=== PATIENT | female | born 2000 | race African-American/Black ===

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

== ENCOUNTER 2021-02-14 16:26 | Emergency (ER) | payer BC, MEDICAID, SELFPAY ==
[2021-02-14 17:05] LABS: Bilirubin Negative (Negative); Blood, Urine Trace (Negative); Clarity Slightly Cloudy (Clear); Glucose, Urine (Dipstick) Negative (Negative); Ketone, Urine Negative (Negative); Leukocyte Negative (Negative); Nitrite Negative (Negative); Protein, Urine (Dipstick) Negative (Neg-Trace)
[2021-02-14 17:08] LABS: Specific Gravity, Urine 1.025 (1.005-1.030)
[2021-02-14 17:11] LABS: RBC/HPF 0-3 HPF (0-3)
[2021-02-14 17:12] LABS: Bacteria/HPF 2+ HPF (None Seen); Pregnancy Test - Urine (BHCG) Negative (Negative)
[2021-02-14 17:13] LABS: Pregu Control Background? CLEAR/WHITE (CLR/WHITE); Pregu Control Bar Appear? YES (CONTROL BAR); Specific Gravity 1.025 (1.002-1.036)
[2021-02-14 17:17] LABS: Hemoglobin 11.4 g/dL (12.0-16.0); Mean Corpuscular HGB CONC 31.4 g/dL (32.0-36.0); Mean Corpuscular Hemoglobin 25.2 pg (25.0-35.0); Mean Corpuscular Volume 80.1 fL (78.0-98.0); Mean Platelet Volume 6.2 fL (7.4-10.4); Platelet Count 466 thou/uL (130-400); Red Blood Cell (RBC) Count 4.52 mill/uL (4.00-5.20); White Blood Cell (WBC) Count 5.8 thou/uL (4.8-10.8)
[2021-02-14 17:21] LABS: ALT (SGPT) 15 U/L (8-55); AST (SGOT) 16 U/L (5-34); Albumin 3.7 g/dL (3.5-5.0); Alkaline Phosphatase 80 U/L (40-100); Anion Gap 10 mmol/L (10-20); BUN (Urea Nitrogen) 9 mg/dL (7.0-18.7); Bilirubin, Total 0.2 mg/dL (0.2-1.2); Calc. Creatinine Clearance 0 mL/min (70-130); Calcium 9.3 mg/dL (7.8-10.44); Carbon Dioxide 26 mmol/L (22-29); Chloride 106 mmol/L (98-107); Globulin 3.4 g/dL (2.4-3.5); Glucose 109 mg/dL (70-105); Lipase 32 U/L (8-78); Potassium 3.9 mmol/L (3.5-5.1); Protein, Total 7.1 g/dL (6.0-8.3); Sodium 138 mmol/L (136-145)
[2021-02-14 17:40] LABS: Band 1 % (5-11); Lymphocytes 48 % (28-48); MDiff Complete? YES; Neutrophil 49 % (31-61)
[2021-02-14 17:41] LABS: Anisocytosis SLIGHT = 6-15 cells (100X) (0-5/hpf); Monocytes 2 % (0-4)
[2021-02-14] MEDS ORDERED: Ondansetron ODT 4 MG TAB ONE (17:45)
[2021-02-14 17:46] LABS: Bilirubin Negative (Negative); Blood, Urine Negative (Negative); Clarity Clear (Clear); Glucose, Urine (Dipstick) Negative (Negative); Ketone, Urine Negative (Negative); Leukocyte Negative (Negative); Nitrite Negative (Negative); Protein, Urine (Dipstick) Negative (Neg-Trace); Specific Gravity, Urine 1.025 (1.005-1.030)
[2021-02-14] MEDS ORDERED: Mag-Al Plus 1200 MG/1200 MG/120 MG/30 ML UDCUP ONE (17:48)
== END 2021-02-14 18:00 | disposition home or self-care (01) ==
LOC: NAV ERS 16:26
DX: K29.70 Gastritis, unspecified, without bleeding (principal)
CPT/HCPCS: 36415; 80053; 81003; 81015; 81025; 83690; 85025; 87077; 87086; 87186; 99284; Q0162

== ENCOUNTER 2021-12-07 18:13 | Emergency (ER) | payer SELFPAY ==
[2021-12-07] MEDS ORDERED: predniSONE 20 MG TAB ONE (18:59)
== END 2021-12-07 19:08 | disposition home or self-care (01) ==
LOC: NAV ERS 18:13
DX: J20.8 Acute bronchitis due to other specified organisms (principal); J32.9 Chronic sinusitis, unspecified; B97.89 Other viral agents as the cause of diseases classified elsewhere; Z20.822 Contact with and (suspected) exposure to COVID-19
CPT/HCPCS: 99283; J7512; U0003; U0005

== ENCOUNTER 2022-02-17 18:41 | Emergency (ER) | payer BC ==
[2022-02-17] MEDS ORDERED: Ondansetron ODT 4 MG TAB ONE (19:11)
[2022-02-17] MEDS ORDERED: Ibuprofen 800 MG TAB ONE (19:11)
[2022-02-17] MEDS ORDERED: Penicillin V Potassium 250 MG TAB ONE (19:50)
== END 2022-02-17 19:55 | disposition home or self-care (01) ==
LOC: NAV ERS 18:41
DX: J02.9 Acute pharyngitis, unspecified (principal)
CPT/HCPCS: 87081; 87430; 87804; 99283; Q0162

== ENCOUNTER 2022-05-20 15:35 | Emergency (ER) | payer BC ==
[2022-05-20] MEDS ORDERED: Acetaminophen 500 MG TAB ONE (16:00)
[2022-05-20] MEDS ORDERED: Ibuprofen 200 MG TAB ONE (16:00)
[2022-05-20] MEDS ORDERED: Sodium Chloride 0.9% 1,000 ML ONE (16:54)
[2022-05-20] MEDS ORDERED: Dexamethasone 20 MG/5 ML VIAL ONE (16:54)
== END 2022-05-20 17:50 | disposition home or self-care (01) ==
LOC: NAV ERS 15:35
DX: J02.9 Acute pharyngitis, unspecified (principal); R50.9 Fever, unspecified
CPT/HCPCS: 87081; 87430; 87804; 96361; 96374; J1100; J7050